=== PATIENT | male | born 1965 ===

== ENCOUNTER 2017-11-21 00:36 | Day surgery (SDC) | payer OTHER ==
[2017-11-21] VITALS (7 sets, daily range): BP systolic 93–115; BP diastolic 68–80
[~2017-11-21] VITALS: Ht 175.3 cm; Wt 64.9 kg
[~2017-11-21 00:36] MED LIST: CHOL100058 PO; FERR160T25 PO; MULT1TAB64 PO; VITA-175 PO
[2017-11-21] MEDS ORDERED: PROPOFOL EMUL(*) 10MG/ML 20 ML 20 ML ONE ×2 (07:09→08:26)
[2017-11-21] MEDS ORDERED: LIDOCAINE/SOD BICARB 8.4% SYR ID ONE (07:15)
[2017-11-21] MEDS ORDERED: NORMOSOL R SOLN(*) 1000 ML BAG 1,000 ML IV PRN (07:15)
--- NOTE | 2017-11-21 09:05 | Short(Outpt) Discharge Summary ---
Discharge Summary Reason for Hosp/Final Diag: (1) Colon cancer screening Status: Chronic Hospital Course & Plan: Colonoscopy with polypectomy x1 completed without problems. Departure Discharge to: Home, Self Care Discharge Instructions Home Meds Reported Medications Cholecalciferol (Vitamin D3) (VITAMIN D) 1,000 Unit Capsule, 1000 UNIT PO QDAY, CAPSULE 11/06/17 Ferrous Sulfate, Dried (IRON) Unknown Strength Tablet.er, PO QDAY 11/06/17 Vitamin B Complex (B COMPLEX) 1 Each Tablet, 1 EACH PO QDAY 11/06/17 Multivitamin (MULTI VITAMIN DAILY) 1 Each Tablet, 1 EACH PO QDAY, TAB 11/06/17 Diet: Regular Activity: As Tolerated Special Instructions: Your colonoscopy was completed without problems and your prep was excellent (Good Job!!). I removed a tiny polyp from your colon and it was sent to pathology. My office will call you in the next week or so and let you know what the polyp is and when your next colonoscopy should be (either 5 or 10 years) depending on the pathology results. PANFILO VALENCIA MD Nov 21, 2017 09:05
== END 2017-11-21 09:45 | disposition home or self-care (01) ==
LOC: OR 00:36
PROVIDERS: ATTEND Surgery
DX: Z12.11 Encounter for screening for malignant neoplasm of colon (principal); D12.0 Benign neoplasm of cecum; J45.909 Unspecified asthma, uncomplicated
CPT/HCPCS: 00811; 45388; 88305; J2704